=== PATIENT | male | born 1945 | race Caucasian/White ===

== ENCOUNTER 2017-07-03 10:23 | Emergency (ER) | payer MEDICARE, OTHER | END 2017-07-03 13:30 | disposition home or self-care (01) | LOC: D.ER 10:23 | DX: M54.16 Radiculopathy, lumbar region (principal); E11.9 Type 2 diabetes mellitus without complications ==

== ENCOUNTER → 2017-07-05 07:50 | Outpatient (CLI) | payer MEDICARE, OTHER | END | disposition home or self-care (01) | LOC: D.MRI 07:50 | DX: M54.16 Radiculopathy, lumbar region (principal) ==